=== PATIENT | female | born 1940 | race Caucasian/White ===

== ENCOUNTER 2024-02-15 07:00 | Observation (INO) | payer MEDICARE ==
[~2024-02-15] VITALS: Ht 167.6 cm; Wt 72.1 kg
[~2024-02-15 07:00] MED LIST: OXYC-38 PO; PRED20TA3 PO
[2024-02-15] MEDS ORDERED: AZTREONAM 1 GM VIAL IVPB SCH (08:00)
[2024-02-15] MEDS: ondanSETRON 4MG INJ IVP ONE (08:04)
[2024-02-15] MEDS: morPHINE 2 MG SYG IVP ONE (08:05)
[2024-02-15 08:13] LABS: BASOPHILS # (AUTO) 0.01 K/uL (0.00-0.20); BASOPHILS % (AUTO) 0.2 % (0.0-5.0); HEMATOCRIT 35.1 % (36-48); IMMATURE GRANULOCYTE ABSOLUTE 0.03 K/uL (0-1); LYMPHOCYTES # (AUTO) 0.9 K/uL (1.0-4.8); LYMPHOCYTES % (AUTO) 18.1 % (21.0-51.0); MEAN CORPUSCULAR HEMOGLOBIN 24.4 pg (27.0-33.0); MEAN CORPUSCULAR HGB CONC 29.3 g/dL (32.0-36.0); MEAN CORPUSCULAR VOLUME 83.2 fL (79-99); MONOCYTES # (AUTO) 0.4 K/uL (0.1-1.0); MONOCYTES % (AUTO) 7.4 % (3.0-13.0); NEUTROPHILS # (AUTO) 3.5 K/uL (1.8-7.7); NEUTROPHILS % (AUTO) 69.7 % (40.0-77.0); PLATELET COUNT (AUTO) 174 K/uL (130-400); RED BLOOD CELL COUNT(AUTO) 4.22 MIL/uL (4.00-5.50); RED CELL DISTRIBUTION WIDTH 17.3 % (11.0-15.5)
[2024-02-15 08:29] LABS: CREATININE 0.7 mg/dL (0.5-1.0); POTASSIUM 3.3 mmol/L (3.5-5.1)
[2024-02-15] MEDS: 0.9%NACL 1000ML 1,000 ML IV ONE (08:34)
[2024-02-15] MEDS: VANCOMYCIN KIT 1 GM/250 ML IV.KIT IV ONE (08:34)
[2024-02-15] MEDS: AZTREONAM 1 GM VIAL IVPB ONE (08:34)
[2024-02-15 08:51] LABS: INR 1.14 (0.85-1.15); PROTHROMBIN TIME 12.2 SEC (9.6-11.6)
[2024-02-15 08:53] LABS: PARTIAL THROMBOPLASTIN TIME 28.2 SEC (26.3-35.5)
[2024-02-15] MEDS ORDERED: acetaMINOPHEN 325 MG TAB PO PRN (09:00)
[2024-02-15] MEDS ORDERED: ondanSETRON 4MG TABLET PO PRN (09:00)
[2024-02-15] MEDS ORDERED: VANCOMYCIN PROTOCOL PER PHARMACY IV SCH (09:00)
[2024-02-15] MEDS: ceFEPime HCL 1 GM VIAL IVPB SCH (10:33)
[2024-02-15] MEDS: ENOXAPARIN SODIUM 30 MG/0.3 ML SQ SCH (10:34)
[2024-02-15] MEDS: LORazepam 2 MG/ML 1 ML VIAL IVP ONE (10:58)
[2024-02-15] MEDS ORDERED: DOCU-116 PO (15:53)
[2024-02-15] MEDS ORDERED: LOSA25TA41 PO (15:53)
[2024-02-15] MEDS ORDERED: ASCO500T10 PO (15:53)
[2024-02-15] MEDS ORDERED: BUSP10TA3 PO (15:53)
[2024-02-15] MEDS ORDERED: ATOR10TA69 PO (15:53)
[2024-02-15] MEDS ORDERED: TRAZ-185 PO (15:53)
[2024-02-15] MEDS ORDERED: ACET325T51 PO (15:53)
[2024-02-15] MEDS ORDERED: APIX2.5T PO (15:53)
[2024-02-15] MEDS ORDERED: BACL5TAB PO (15:53)
[2024-02-15] MEDS ORDERED: QUET50TA24 PO (15:53)
[2024-02-15] MEDS ORDERED: HYDR-3421 PO (15:53)
[2024-02-15] MEDS ORDERED: QUET100T34 PO (15:53)
[2024-02-15] MEDS ORDERED: CLOP-31 PO (15:53)
[2024-02-15] MEDS ORDERED: OMEP20CA12 PO (15:53)
[2024-02-15] MEDS ORDERED: FOLI1 PO (15:53)
[2024-02-15 16:30] VITALS: O2SAT 99
[2024-02-15] MEDS ORDERED: PoTASSium chloRIDE 20MEQ ER 20 MEQ ERTAB PO PRN (16:30)
[2024-02-15] MEDS ORDERED: PoTASSium chloRIDE 20MEQ/100ML 100 ML IV PRN (16:30)
[2024-02-15] MEDS ORDERED: PoTASSium chl 10% ELIXIR 20MEQ 20 MEQ/15 ML UDCUP PO PRN (16:30)
[2024-02-15] MEDS: morPHINE 2 MG SYG IVP PRN ×2 (16:41→19:38)
[2024-02-15 17:30] VITALS: BP 119/59; PULSE 70; RESP 20; TEMP 97.4
[2024-02-15 19:00] VITALS: BP 113/81; PULSE 60; RESP 20; TEMP 98.7
[2024-02-15] MEDS: VANCOMYCIN 750MG VIAL IVPB SCH (21:00)
[2024-02-15] MEDS: DEXTROSE 5 % AND 0.9 % NACL 1,000 ML IV SCH (21:00)
[2024-02-15 21:26] VITALS: O2SAT 99
[2024-02-15 23:00] VITALS: BP 116/62; PULSE 81; RESP 20; TEMP 98.1
[2024-02-16 04:00] VITALS: BP 154/70; PULSE 70; RESP 20; TEMP 98.3
[2024-02-16 05:17] LABS: BASOPHILS # (AUTO) 0.03 K/uL (0.00-0.20); BASOPHILS % (AUTO) 0.6 % (0.0-5.0); EOSINOPHILS # (AUTO) 0.32 K/uL (0.00-0.70); HEMATOCRIT 35.5 % (36-48); IMMATURE GRANULOCYTE ABSOLUTE 0.02 K/uL (0-1); LYMPHOCYTES # (AUTO) 0.7 K/uL (1.0-4.8); LYMPHOCYTES % (AUTO) 12.5 % (21.0-51.0); MEAN CORPUSCULAR HEMOGLOBIN 24.4 pg (27.0-33.0); MEAN CORPUSCULAR HGB CONC 28.2 g/dL (32.0-36.0); MEAN CORPUSCULAR VOLUME 86.6 fL (79-99); MONOCYTES # (AUTO) 0.3 K/uL (0.1-1.0); MONOCYTES % (AUTO) 6.3 % (3.0-13.0); NEUTROPHILS % (AUTO) 74.2 % (40.0-77.0); PLATELET COUNT (AUTO) 178 K/uL (130-400); RED CELL DISTRIBUTION WIDTH 16.8 % (11.0-15.5); WHITE BLOOD COUNT (AUTO) 5.4 K/uL (4.8-10.8)
[2024-02-16 05:46] LABS: ALBUMIN 2.8 g/dL (3.5-5.0); BILIRUBIN,TOTAL 0.4 mg/dL (0.2-1.0); CREATININE 0.7 mg/dL (0.5-1.0); MAGNESIUM 1.9 mg/dL (1.80-2.40); POTASSIUM 3.9 mmol/L (3.5-5.1); TOTAL PROTEIN, SERUM 7.3 g/dL (6.0-8.3)
[2024-02-16 08:00] VITALS: BP 131/103; PULSE 77; RESP 18; TEMP 97.3; O2SAT 98
[2024-02-16 12:00] VITALS: BP 134/60; PULSE 97; RESP 18; TEMP 98.5
[2024-02-16 16:00] VITALS: BP 128/74; PULSE 74; RESP 18; TEMP 98.5
[2024-02-16] MEDS: LORazepam 2 MG/ML 1 ML VIAL IVP PRN (19:22)
== END 2024-02-16 19:21 ==
LOC: EDH 07:00 → INTOOBSV 08:34 → EDHIP 08:34 → 3DH 16:11
PROVIDERS: ADMIT Internal Medicine Infectious Disease; ATTEND Internal Medicine Infectious Disease
DX: T84.53XA Infection and inflammatory reaction due to internal right knee prosthesis, initial encounter (principal); T84.022A Instability of internal right knee prosthesis, initial encounter; L03.115 Cellulitis of right lower limb; E87.6 Hypokalemia; F03.C0 Unspecified dementia, severe, without behavioral disturbance, psychotic disturbance, mood disturbance, and anxiety; I10 Essential (primary) hypertension; E78.00 Pure hypercholesterolemia, unspecified; M19.90 Unspecified osteoarthritis, unspecified site; M81.0 Age-related osteoporosis without current pathological fracture; E66.9 Obesity, unspecified; K21.9 Gastro-esophageal reflux disease without esophagitis; F41.9 Anxiety disorder, unspecified; Z51.5 Encounter for palliative care; Z74.01 Bed confinement status; Z88.0 Allergy status to penicillin; Z88.8 Allergy status to other drugs, medicaments and biological substances; Z86.73 Personal history of transient ischemic attack (TIA), and cerebral infarction without residual deficits; Z79.2 Long term (current) use of antibiotics; Z96.652 Presence of left artificial knee joint; Z79.899 Other long term (current) drug therapy; Y79.2 Prosthetic and other implants, materials and accessory orthopedic devices associated with adverse incidents
CPT/HCPCS: 87070; 96372 ×2; 96376 ×2; 96366 ×2; 96375 ×2; 96367; 96368; 99285; 82550; 83735 ×2; 84484; 80048; 85025 ×2; 85610; 85730; 87040; 87076; 87086; 87186; 83605; 36415 ×2; 73560; 96365; 93005; 84145; 80053; J2270 ×9; J1650 ×2; J2405; J2060 ×2; J3370 ×4; J0692 ×5; J3490; G0378 ×2